=== PATIENT | male | born 1925 | race Caucasian/White ===

== ENCOUNTER 2016-08-30 10:04 | Observation (INO) | payer MEDICARE, BC, OTHER ==
[2016-08-30 10:54] LABS: Hematocrit 38 % (42-52); Hemoglobin 12.5 g/dl (14.0-18.0); Mean Corpuscular HGB Conc 33 g/dl (31-36); Mean Corpuscular Hemoglobin 31 pg (27-31); Mean Corpuscular Volume 93 fL (80-94); Mean Platelet Volume 9 um3 (7.4-10.4); Red Cell Distribution Width 15 % (10.5-15); White Blood Count 9.7 10^3/ul (3.5-10.8)
[2016-08-30] MEDS ORDERED: ceFAZolin 2 GM PREMIX (*) 2 GM/50 ML BAG IVPB ONE (11:00)
[2016-08-30] MEDS ORDERED: Diazepam TAB(*) 5 MG ONE (11:01)
[2016-08-30 11:14] LABS: BUN/Creatinine Ratio 16.8 (8-20); EGFR African American 54.6 (>60); EGFR Non-African American 42.4 (>60)
[2016-08-30] MEDS ORDERED: Naloxone* 0.4 MG/ML 1 ML VIAL ONE (11:39)
[2016-08-30] MEDS ORDERED: fentaNYL* 50 MCG/ML 2 ML VIAL (100 MCG VIAL) ONE (11:40)
[2016-08-30] MEDS ORDERED: Iohexol 300 (CONTRAST) 10 ML SDV ONE (11:41)
[2016-08-30] MEDS ORDERED: Lidocaine 1% INJ* 10 MG/ML 30 ML SDV ONE (11:41)
[2016-08-30] MEDS ORDERED: Midazolam* 1 MG/ML 5 ML VIAL (5 MG) ONE (11:41)
[2016-08-30] MEDS ORDERED: Flumazenil* 0.1 MG/ML 5 ML MDV ONE (11:42)
[2016-08-30] MEDS ORDERED: Acetaminophen TAB* 325 MG PO PRN (13:14)
[2016-08-30] MEDS ORDERED: oxyCODONE/Acetamin 5/325 MG* TAB PO PRN (13:14)
--- NOTE | 2016-08-30 13:54 | RAD ---
INDICATION: Status post device implant. COMPARISON: Comparison is made with a prior chest x-ray study from May 15, 2016. TECHNIQUE: A portable view of the chest was obtained. FINDINGS: The patient is status post coronary artery bypass surgery. There is a transvenous pacemaker present. The heart is moderately enlarged and unchanged. There is diffuse prominence of the interstitial markings and small bilateral pleural effusions suggestive of congestive heart failure. No pneumothorax is seen. IMPRESSION: 1. STATUS POST TRANSVENOUS PACEMAKER PLACEMENT, NO EVIDENCE FOR PNEUMOTHORAX. 2. FINDINGS SUGGESTIVE OF MILD CONGESTIVE HEART FAILURE.
[2016-08-30] MEDS: EYLEA INJ SCH ×17 (15:48→17:01)
[2016-08-30] MEDS: Clindamycin CAP* 150 MG PO SCH ×2 (15:52→23:20)
[2016-08-30] MEDS: Metoprolol Succinate XL TAB* 25 MG PO SCH (15:53)
[2016-08-30] MEDS: Diltiazem CD CAP* 180 MG PO SCH (15:53)
[2016-08-30] MEDS ORDERED: Furosemide TAB* 20 MG PO ONE (19:38)
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
[2016-08-31] MEDS ORDERED: Levothyroxine TAB* 75 MCG TAB PO SCH (06:00)
[2016-08-31 06:33] LABS: BUN/Creatinine Ratio 16.3 (8-20); Calcium 9.4 mg/dL (8.6-10.3); EGFR African American 55.4 (>60); EGFR Non-African American 43.1 (>60)
[2016-08-31] MEDS ORDERED: Atorvastatin* 10 MG TAB PO SCH (09:00)
[2016-08-31] MEDS ORDERED: Metoprolol Succinate XL TAB* 100 MG PO SCH (09:00)
[2016-08-31] MEDS ORDERED: Prenatal Vitamin TAB PO SCH (09:00)
[2016-08-31] MEDS ORDERED: Omeprazole CAP* 20 MG PO SCH (09:00)
[2016-08-31] MEDS ORDERED: Finasteride TAB* 5 MG PO SCH (09:00)
[2016-08-31] MEDS: Clindamycin CAP* 150 MG PO SCH (09:47)
[2016-08-31] MEDS: Diltiazem CD CAP* 180 MG PO SCH (09:47)
[2016-08-31] MEDS: Metoprolol Succinate XL TAB* 25 MG PO SCH (09:47)
--- NOTE | 2016-08-31 10:02 | RAD ---
HISTORY: Syncope and collapse, bradycardia COMPARISONS: August 30, 2016 VIEWS: 2: Frontal and lateral views of the chest. The right costophrenic angle is cut off on the frontal projections. FINDINGS: CARDIOMEDIASTINAL SILHOUETTE: The cardiac silhouette is enlarged. The cardiomediastinal silhouette is otherwise normal. ANKITA: The ankita are normal. PLEURA: The costophrenic angles are sharp. No pleural abnormalities are noted. LUNG PARENCHYMA: The lungs are clear. Interstitial edema noted on the previous examination is not clearly evident on the current examination. ABDOMEN: The upper abdomen is clear. There is no subphrenic gas. BONES AND SOFT TISSUES: The patient is status post median sternotomy. OTHER: A right-sided pacemaker is noted IMPRESSION: LIMITED STUDY. NO ACTIVE CARDIOPULMONARY DISEASE.
[2016-08-31 10:42] VITALS: BP 116/64
[2016-08-31] MEDS ORDERED: Warfarin TAB(*) 4 MG PO SCH (17:00)
--- NOTE | 2016-08-31 20:29 | OP ---
CC: Dr. Gi Delgado OPERATIVE REPORT: DATE OF OPERATION: 08/30/16 DATE OF : [birth year] SURGEON: Maranda Koenig MD. ANESTHESIA: MAC. PRE-OP DIAGNOSIS: Atrial fibrillation with tachybrady syndrome. POST-OP DIAGNOSIS: Atrial fibrillation with tachybrady syndrome. ESTIMATED BLOOD LOSS: 10 cc. DESCRIPTION OF PROCEDURE: The indications, risks, and benefits had been discussed with the patient and his local son in June and July of this year and were discussed again this morning with t he patient and 2 of his sons prior to implantation. All were amenable to proceeding. The specifics of the procedure, risks, benefits, and indications had been discussed in depth. The patient is left handed and the right subclavian fossa was prepped and draped in the usual steril e fashion. Time-out procedure was called. Following this, the patient throughout the procedure rec eived a total of 5 mg of Versed and 50 mcg of fentanyl as well as 1% lidocaine. Following anesthesia, 10 cc of radiopaque dye was injected in the right upper extremity outlining th e right axillary and the right subclavian vein. Following this and local anesthesia, using a 10 alfonzo de knife, a 2.5 cm incision was made in the right subclavian fossa and using Bovie and blunt dissect ion was extended to the level of the pectoralis muscle. Additional lidocaine was infused inferiorly and medially and using blunt dissection, a small pocket was fashioned. Using a modified Seldinger technique, the right subclavian vein was cannulated and using fluoroscopi c guidance, a guidewire was inserted into the right atrium. Using an introducer technique, right ve ntricular lead was guided into the right ventricular apex and actively fixed in place. It should be noted that there was significant back bleeding into the pocket. There appeared to be high venous p ressure in the subclavian vein. After the lead was positioned and with good pacing and sensing thre sholds, hemostasis was obtained. The lead was sutured to the pocket using 0 silk suture taking care to adequate extra lead. The pocket was then irrigated with normal saline. The lead was attached t o the generator. The generator was placed in the pocket and the incision was closed using 2 layers of resorbable suture, 2-0 followed by 4-0. Thresholds were checked externally and found to be stabl e and good and incision was closed with caleb and an external dressing. FINDINGS: The entire system is an MRI compatible system. The device is a Medtronic Advisa SR MRI S ureScan serial #[id number]. The lead is a Medtronic 5076- [id number] serial #[id number] with R-wave sense o f 13.4 mV, ventricular lead impedance of 1196 ohms, and a ventricular pacing threshold of 0.9 volts at 0.5 msec. The patient was hemodynamically stable throughout the procedure. Other than the back bleeding, ther e were no complications. The pocket was dry on closing. [id number]/[facility] #: [id number]
[2016-09-01] MEDS ORDERED: Cholecalciferol TAB* 1000 UNITS PO SCH (09:00)
== END 2016-08-31 11:55 | disposition home or self-care (01) ==
LOC: CHICATH 10:04 → MEDTELE 13:10
PROVIDERS: ADMIT Specialist; ATTEND Specialist
DX: I48.91 Unspecified atrial fibrillation (principal); I49.5 Sick sinus syndrome; Z79.01 Long term (current) use of anticoagulants; Z79.899 Other long term (current) drug therapy; Z87.891 Personal history of nicotine dependence
CPT/HCPCS: 33207; 36415; 71010; 71020; 80048; 85025; 85610; 85730; 93005; A9270-GY; C1785; C1898; G0378; J0690; J2250; J2310; J3010; Q9967